=== PATIENT | female | born 1965 | race Caucasian/White ===

== ENCOUNTER 2020-06-04 19:21 | Emergency (ER) | payer OTHER ==
[~2020-06-04] VITALS: Ht 152.4 cm; Wt 52.2 kg
[2020-06-04] MEDS ORDERED: SKELAXIN800 MG PO (20:56)
[2020-06-04] MEDS ORDERED: KETO10TA2 PO (20:56)
== END 2020-06-04 21:33 | disposition home or self-care (01) ==
LOC: ER 19:21
DX: S30.0XXA Contusion of lower back and pelvis, initial encounter (principal); W18.39XA Other fall on same level, initial encounter; Y93.89 Activity, other specified; Y92.098 Other place in other non-institutional residence as the place of occurrence of the external cause; Y99.8 Other external cause status